=== PATIENT | female | born 1965 | race Caucasian/White ===

== ENCOUNTER 2017-02-21 13:24 | Emergency (ER) | payer OTHER ==
[~2017-02-21] VITALS: Ht 157.5 cm; Wt 71.2 kg
[~2017-02-21 13:24] MED LIST: ALLDSR/24 PO; CLXOPS3 OP; LRT5 PO; SIMV20TA2 PO; TRIA3AER NAE; [UNRECOGNIZED DRUG - REMARK]
[2017-02-21 13:32] VITALS: TEMP 36.8; Ht 157.5 cm; Wt 71.2 kg
[2017-02-21] MEDS ORDERED: SODIUM CHLORIDE 0.9% 1000ML 1,000 ML IV ONE (14:00)
[2017-02-21] MEDS ORDERED: ONDANSETRON INJ 2 MG/ML 2 ML VIAL IV STA (14:10)
[2017-02-21] MEDS ORDERED: MoRPHine SULFATE 10 MG/ML CARP/VIAL IV STA (14:10)
--- NOTE | 2017-02-21 14:12 | EMERGENCY ROOM VISIT NOTE ---
History Report prepared by Neeru: Purvi Vanegas Under the Supervision of: Dr. Juan Anthony M.D. First contact with patient: 13:47 Chief Complaint: KNEEPAIN Stated Complaint: KNEE PAIN History of Present Illness The patient is a 52 year old female who presents to the Emergency Room with complaints of persistent right knee pain since 1100 this morning. She reports she tripped over a chair, twisting her right knee. She rates her discomfort as a 2/10 in severity. Movement worsens her pain. She did not injure anything else or hit her head during the fall. She denies any loss of consciousness, chest pain, abdominal pain or hip pain. Source of History: patient Onset: 1100 this morning Position: knee (right) Symptom Intensity: 2/10 Timing: other (persistent) Modifying Factors (Worsening): movement Associated Symptoms: No LOC, No chest pain, No abdominal pain Review of Systems All systems have been listed, reviewed, and are negative other than those previously mentioned. Please see Additional Medical History Sheet. Past Medical & Surgical Medical Problems: (1) Asthma (2) Fractured nasal bones Surgical Problems: (1) History of tubal ligation Family History Cancer Diabetes mellitus Heart disease Hypertension Kidney disease Kidney stones Social History Smoking Status: Never Smoker Alcohol Use: none Drug Use: none Marital Status: Housing Status: lives with family Occupation Status: employed Current/Historical Medications Scheduled B-Complex Vitamins (Vitamin B Complex), 1 TAB PO DAILY Cholecalciferol (Vitamin D), 2,000 UNITS PO DAILY Citalopram Hydrobromide (Celexa), Unknown Dose PO DAILY Docusate Sodium (Colace), 100 MG PO BID Fexofenadine Hcl (Margaret), 180 MG PO DAILY Multivitamin (Multivitamin), 1 TAB PO DAILY Ranitidine Hcl (Zantac), 300 MG PO HS Simvastatin (Zocor), 20 MG PO QPM Scheduled PRN Albuterol Hfa (Ventolin Hfa), 2-4 PUFFS INH Q6H PRN for SOB/Wheezing Oxycodone Immediate Rel Tab (Roxicodone Ir), 1-2 TAB PO Q4H PRN for Severe Pain Allergies Coded Allergies: No Known Allergies (Unverified , 02/21/17) Physical Exam Vital Signs Date Time Temp Pulse Resp B/P (MAP) Pulse Ox O2 Delivery O2 Flow Rate FiO2 02/21/17 15:31 70 18 140/87 99 Room Air 02/21/17 13:32 36.8 72 18 132/80 99 Room Air Physical Exam GENERAL: Patient awake, alert, oriented x 3. Patient follows commands. Patient does not appear toxic. Patient is adequately hydrated and well- nourished. SKIN: No erythema, pallor, cyanosis or rash HEENT: Normal head, pupils equal, reactive to light and accommodation. LUNGS: Clear to auscultation. No wheezes, no rales, no rhonchi. HEART: No murmurs. No gallops. No rubs ABDOMEN: Soft, nontender abdomen. Pelvis is nontender. EXTREMITIES: Patient has marked deformity of right knee, unable to move past 120 degree angle. Good distal pulses and sensation. Motion is restricted due to pain. NEUROLOGIC: Cranial nerves II-XII within normal limits. No gross motor sensory function deficits. Medical Decision & Procedures ER Provider Diagnostic Interpretation: Radiology results as stated below per my review and radiologist interpretation: R KNEE 4 OR MORE VIEWS CLINICAL HISTORY: 52 years-old Female presenting with fell striking knee. TECHNIQUE: Frontal, tunnel, lateral, and sunrise views of the right knee were obtained. COMPARISON: None. FINDINGS: Moderate right knee joint effusion present with a layering fat fluid level. Minimally displaced fracture of the tibial metaphysis extending from the lateral tibial articular surface distally towards the medial tibial metaphysis. There may be fragmentation of the intercondylar notch and extension of the fracture plane into the posterior rim of the medial tibial plateau. 2 mm of anterior displacement of the distal fracture fragment. No patellar subluxation. IMPRESSION: 1. Minimally displaced fracture extending from the lateral tibial plateau to the medial tibial metaphysis with fragmentation of the intercondylar notch and suspected involvement of the medial tibial plateau posteriorly. 2. Lipohemarthrosis. Electronically signed by: Nick Mina M.D. 02/21/2017 2:54 PM Medications Administered Medications (Trade) Dose Ordered Sig/Karina Route Start Time Stop Time Status Last Admin Dose Admin Ondansetron HCl (Zofran Inj) 4 mg NOW STAT IV 02/21/17 14:10 02/21/17 14:13 DC 02/21/17 14:18 4 MG Morphine Sulfate (MoRPHine SULFATE INJ) 2 mg STK-MED ONCE .ROUTE 02/21/17 14:15 02/21/17 14:16 DC 02/21/17 14:18 2 MG Morphine Sulfate (MoRPHine SULFATE INJ) 4 mg STK-MED ONCE .ROUTE 02/21/17 14:16 02/21/17 14:17 DC 02/21/17 14:19 4 MG Oxycodone HCl (Roxicodone Immediate Rel Tab) 5 mg NOW STAT PO 02/21/17 16:12 02/21/17 16:13 DC 02/21/17 16:20 5 MG ED Course 1400: NSS 1000 ml @ 1000 mls/hr IV. 1405: Past medical records reviewed. The patient was evaluated in room A2. A complete history and physical examination was performed. 1410: Zofran 4 mg IV. 1415: Morphine Sulfate 2 mg IV. 1437: Maalox Susp 30 ml PO. 1508: I reevaluated the patient. I updated her on her imaging results. 1510: I discussed the patients case with John Kuh[facility]. He recommends follow up in the office. 1558: I reevaluated the patient. She is feeling well and resting comfortably. I discussed her results and discharge instructions and she verbalized complete understanding and agreement. 1612: Oxycodone HCl 5 mg PO. Medical Decision The differential diagnoses considered include fracture, dislocation and subluxation of right knee. The patient is here with significant swelling and pain in the right knee. X- rays reveal fractures through the proximal tibia. The case was discussed with Dr. Lopez over the phone. He suggested the patient be placed in a knee immobilizer with no weightbearing. Patient was given pain medication while here and prescription for the same. She is to follow-up with Dr. Lopez within the next 2 days. The patient has a wheelchair at home. [place] Drug Monitoring Program Search Results: patient reviewed within database, no issues identified Medication Reconcilliation Current Medication List: was personally reviewed by me Blood Pressure Screening Patient's blood pressure: Elevated blood pressure Blood pressure disposition: Elevated BP felt to be situational Consults Time Called: 1505 Consulting Physician: John Kuhn and [facility] Returned Call: 1510 I discussed the patients case with John Kuhn and [facility]. He recommends follow up in the office. Impression Primary Impression: Tibial plateau fracture, right Scribe Attestation The scribe's documentation has been prepared under my direction and personally reviewed by me in its entirety. I confirm that the note above accurately reflects all work, treatment, procedures, and medical decision making performed by me. Departure Information Dispostion Home / Self-Care Prescriptions Docusate Sodium (COLACE) 100 Mg Cap 100 MG PO BID, #10 CAP Prov: Juan Anthony M.D. 02/21/17 Oxycodone Immediate Rel Tab (ROXICODONE IR) 5 Mg Tab 1-2 TAB PO Q4H Y for Severe Pain, #20 TAB Prov: Juan Anthony M.D. 02/21/17 Referrals Scot Contreras M.D. (MEDICAL) (PCP) Patient Instructions My [facility] Additional Instructions No weightbearing on the right leg. Apply ice intermittently to your knee over the next 24 hours. 650 mg of Tylenol every 4 hours as needed for [id number] pain. 1-2 OxyIR every 4 hours as needed for moderate to severe pain. 1 Colace twice a day for the next 5 days. Follow-up with Dr. Lopez within the next 2 days.
[2017-02-21] MEDS ORDERED: MoRPHine SULFATE 2 MG/ML CARP ONE (14:15)
[2017-02-21] MEDS ORDERED: MoRPHine SULFATE 4 MG/ML 1 ML CARP\\VIAL ONE (14:16)
[2017-02-21] MEDS ORDERED: ALUMINUM/MAGNESIUM/SIMETH (MAALOX MAX) 30 ML UDC PO STA (14:37)
[2017-02-21] MEDS ORDERED: FEXO1TAB46 PO (14:51)
[2017-02-21] MEDS ORDERED: RANI300T2 PO (14:52)
[2017-02-21] MEDS ORDERED: MULT-506 PO (14:52)
[2017-02-21] MEDS ORDERED: CHOL20009 PO (14:52)
[2017-02-21] MEDS ORDERED: VNTHFA/IN INH (14:52)
[2017-02-21] MEDS ORDERED: B-COTAB18 PO (14:52)
[2017-02-21] MEDS ORDERED: CITA10TA8 PO (14:53)
--- NOTE | 2017-02-21 14:56 | DIAGNOSTIC IMAGING REPORT ---
R KNEE 4 OR MORE VIEWS CLINICAL HISTORY: 52 years-old Female presenting with fell striking knee. TECHNIQUE: Frontal, tunnel, lateral, and sunrise views of the right knee were obtained. COMPARISON: None. FINDINGS: Moderate right knee joint effusion present with a layering fat fluid level. Minimally displaced fracture of the tibial metaphysis extending from the lateral tibial articular surface distally towards the medial tibial metaphysis. There may be fragmentation of the intercondylar notch and extension of the fracture plane into the posterior rim of the medial tibial plateau. 2 mm of anterior displacement of the distal fracture fragment. No patellar subluxation. IMPRESSION: 1. Minimally displaced fracture extending from the lateral tibial plateau to the medial tibial metaphysis with fragmentation of the intercondylar notch and suspected involvement of the medial tibial plateau posteriorly. 2. Lipohemarthrosis. Electronically signed by: Nick Mina M.D. 02/21/2017 2:54 PM Dictated Date/Time: 02/21/2017 2:51 PM
[2017-02-21 15:31] VITALS: BP 140/87; PULSE 70; O2SAT 99
[2017-02-21] MEDS ORDERED: OXYC1TAB3 PO (16:06)
[2017-02-21] MEDS ORDERED: DOCU-94 PO (16:06)
[2017-02-21] MEDS ORDERED: OXYCODONE HCL IR 5 MG TAB (IMMEDIATE RELEASE) PO STA (16:12)
[2017-02-21] MEDS ORDERED: OXYCODONE IR HOME PACK PO ONE ×2 (16:58→17:00)
== END 2017-02-21 17:09 | disposition home or self-care (01) ==
LOC: EDBD 13:24 → C.EDA 13:27
DX: S82.201A Unspecified fracture of shaft of right tibia, initial encounter for closed fracture (principal); W01.0XXA Fall on same level from slipping, tripping and stumbling without subsequent striking against object, initial encounter; J45.909 Unspecified asthma, uncomplicated; Z87.81 Personal history of (healed) traumatic fracture; Z98.51 Tubal ligation status; Z79.899 Other long term (current) drug therapy; Z80.9 Family history of malignant neoplasm, unspecified; Z83.3 Family history of diabetes mellitus; Z82.49 Family history of ischemic heart disease and other diseases of the circulatory system; Z84.1 Family history of disorders of kidney and ureter